=== PATIENT | female | born 1965 | race Caucasian/White ===

== ENCOUNTER 2019-05-02 14:54 | Emergency (ER) | payer BC ==
[2019-05-02] MEDS ORDERED: Tetan/Diph/Pertus SYR(Tdap)* 0.5 ML SYR(BOOSTRIX) use SYR IM ONE (17:43)
--- NOTE | 2019-05-02 18:18 | ED ---
Laceration/Wound HPI - HPI Summary HPI Summary: 53-year-old female presents with right hand laceration today. She cut it on a bread knife. She . No numbness or tingling. Does have full range of motion of hand. She is left-handed. Works as an [employer] administrator. denies any foreign body in the wound. Unsure when last tetanus was. - History of Current Complaint Stated Complaint: RIGHT ARM LACERATION PER PT Time Seen by Provider: 05/02/19 17:43 Pain Intensity: 6 - Allergy/Home Medications Allergies/Adverse Reactions: Allergies Allergy/AdvReac Type Severity Reaction Status Date / Time No Known Allergies Allergy Verified 05/02/19 15:19 PMH/Surg Hx/FS Hx/Imm Hx Endocrine/Hematology History: Denies: Hx Anticoagulant Therapy Respiratory History: Denies: Hx Asthma Infectious Disease History: No Infectious Disease History: Denies: Traveled Outside the in Last 30 Days - Family History Known Family History: Positive: Non-Contributory - Social History Alcohol Use: Occasionally Substance Use Type: Reports: None Smoking Status (MU): Never Smoked Tobacco Review of Systems Negative: Fever Negative: Chest Pain Negative: Shortness Of Breath Positive: Other - right hand laceration All Other Systems Reviewed And Are Negative: Yes Physical Exam Triage Information Reviewed: Yes Vital Signs On Initial Exam: Initial Vitals Temp Pulse Resp BP Pulse Ox 99.6 F 82 12 121/80 99 05/02/19 15:14 05/02/19 15:14 05/02/19 15:14 05/02/19 15:14 05/02/19 15:14 Vital Signs Reviewed: Yes Appearance: Positive: Well-Appearing Skin: Positive: Warm, Dry, Other - 4cm by 1cm laceration to palm of right hand Head/Face: Positive: Normal Head/Face Inspection Eyes: Positive: Normal, Conjunctiva Clear ENT: Positive: Pharynx normal Respiratory/Lung Sounds: Positive: Clear to Auscultation, Breath Sounds Present Cardiovascular: Positive: Normal, RRR Musculoskeletal: Positive: Strength/ROM Intact - right hand, Other - capillary refill<2 secs Neurological: Positive: Normal Psychiatric: Positive: Normal Procedures - Laceration/Wound Repair 1 Location: Other - right hand laceration Description: Linear Anesthesia: Local, 1.0% Length, Depth and Shape: 4cm by 1cm laceration to palm of right hand Irrigated w/ Saline (ccs): 500 Laceration/Wound Explored: no foreign body removed Closure: Single Layer Suture Type: Prolene Number of Sutures: 5 Sterile Dressing Applied?: No - telfa and tonya Diagnostics - Vital Signs Vital Signs Temp Pulse Resp BP Pulse Ox 05/02/19 15:14 99.6 F 82 12 121/80 99 - Laboratory Lab Statement: Any lab studies that have been ordered have been reviewed, and results considered in the medical decision making process. Laceration Repair Course/Dx - Course Course Of Treatment: 53-year-old female presents with right hand laceration today. She cut it on a bread knife. She . No numbness or tingling. Does have full range of motion of hand. She is left-handed. Works as an [employer] administrator. denies any foreign body in the wound. Unsure when last tetanus was. On exam has 4 cm by 1/2cm laceration right palm. Cleaned area and placed 5 sutures. Told to keep area clean dry. Patient understands agrees plan. - Differential Dx Differental Diagnoses: Abrasion, Avulsion, Laceration - Clinical Impression Provider Diagnoses: Laceration of right hand Discharge ED - Sign-Out/Discharge Documenting (check all that apply): Patient Departure Patient Received Moderate/Deep Sedation with Procedure: No - Discharge Plan Condition: Good Disposition: HOME Patient Education Materials: Care For Your Stitches (ED) Referrals: Tiffany Yung MD [Medical Doctor] - Additional Instructions: Take Tylenol or ibuprofen for pain every 6 hours as needed Keep area clean and dry for 24 hours Return to ED or primary in 8-10 days to have sutures removed Return to ED if develop signs of infection such as fever, spreading redness, or pus. - Billing Disposition and Condition Condition: GOOD Disposition: Home
[2019-05-02 18:26] VITALS: BP 122/88
== END 2019-05-02 18:19 | disposition home or self-care (01) ==
LOC: ED 14:54
DX: S61.411A Laceration without foreign body of right hand, initial encounter (principal); Z23 Encounter for immunization; W26.0XXA Contact with knife, initial encounter; Y92.9 Unspecified place or not applicable
CPT/HCPCS: 12002; 90471; 90715; 99282